=== PATIENT | female | born 1945 | race Caucasian/White ===

== ENCOUNTER 2019-08-13 08:25 | Emergency (ER) | payer MEDICARE, BC ==
[~2019-08-13] VITALS: Ht 162.6 cm; Wt 61.2 kg
[~2019-08-13 08:25] MED LIST: Augmentin 875-1 EACH PO; LEVSOD100 PO; LEVSOD50 PO; LORTAB 5-325 M1 EACH PO; MELO7.5 PO; Pantoprazole So40 MG PO; Pepcid20 MG PO; Vistaril50 MG PO
[2019-08-13] MEDS ORDERED: Voltaren100 GM TOP (10:10)
[2019-08-13] MEDS ORDERED: NAPR550 PO (10:10)
== END 2019-08-13 10:37 | disposition home or self-care (01) ==
LOC: ER 08:25
DX: M75.31 Calcific tendinitis of right shoulder (principal); E03.9 Hypothyroidism, unspecified; Z87.891 Personal history of nicotine dependence; Z88.1 Allergy status to other antibiotic agents; Z79.899 Other long term (current) drug therapy
CPT/HCPCS: 73030; 96372; 99283-25; A9270-GY; J1885

== ENCOUNTER → 2020-08-24 | Outpatient (CLI) | payer MEDICARE, BC ==
[~2020-08-24] MED LIST changes: +NAPR550 PO; +Voltaren100 GM TOP
== END | disposition home or self-care (01) ==
LOC: LAB 08:40 → LAB SHORT 08:40
DX: N30.90 Cystitis, unspecified without hematuria (principal)
CPT/HCPCS: 87077; 87086; 87186

== ENCOUNTER 2024-07-17 08:15 | Emergency (ER) | payer MEDICARE, BC ==
[~2024-07-17] VITALS: Ht 170.2 cm; Wt 70.8 kg
[2024-07-17 08:24] VITALS: BP 115/78
[2024-07-17] MEDS ORDERED: Diphth,Pertuss(Acell),Tet Vac 0.5 ML VIAL IM ONE (08:30)
== END 2024-07-17 08:40 | disposition home or self-care (01) ==
LOC: ER 08:15
DX: S61.216A Laceration without foreign body of right little finger without damage to nail, initial encounter (principal); W26.8XXA Contact with other sharp object(s), not elsewhere classified, initial encounter; E03.9 Hypothyroidism, unspecified; Z23 Encounter for immunization
CPT/HCPCS: 90471; 90715; 99281-25